=== PATIENT | male | born 1995 | race Hispanic/Latino ===

== ENCOUNTER 2019-01-27 19:31 | Emergency (ER) | payer OTHER, SELFPAY ==
--- NOTE | 2019-01-27 21:34 | RAD ---
THREE VIEWS RIGHT FOOT: 01/27/19 HISTORY: Injury to right foot while at work with pain. AP, lateral and oblique views right foot obtained. No evidence of right foot fractures seen. The Lisfranc joint appears to be intact. No definite eviden ce of phalangeal or metatarsal fractures seen. IMPRESSION: Normal three views right foot. POS: [facility]
== END 2019-01-27 20:30 | disposition home or self-care (01) ==
LOC: EDBD 19:31 → ERS 19:31
DX: S93.601A Unspecified sprain of right foot, initial encounter (principal); W20.8XXA Other cause of strike by thrown, projected or falling object, initial encounter

== ENCOUNTER 2020-12-09 16:11 | Emergency (ER) | payer OTHER | END 2020-12-09 17:58 | disposition home or self-care (01) | LOC: ERS 16:11 | DX: B34.9 Viral infection, unspecified (principal); Z20.822 Contact with and (suspected) exposure to COVID-19 | CPT/HCPCS: 87081; 87430; 99283 ==